=== PATIENT | male | born 1950 | race Caucasian/White ===

== ENCOUNTER → 2024-06-24 12:25 | Outpatient (REF) | payer MEDICARE, OTHER, SELFPAY | LOC: WOUND 12:25 | PROVIDERS: ATTENDING PHYSICIAN Surgery; FAMILY PHYSICIAN Family Medicine | DX: L97.322 Non-pressure chronic ulcer of left ankle with fat layer exposed (principal); L97.318 Non-pressure chronic ulcer of right ankle with other specified severity; I87.2 Venous insufficiency (chronic) (peripheral); I73.9 Peripheral vascular disease, unspecified; I50.9 Heart failure, unspecified; I50.32 Chronic diastolic (congestive) heart failure; J44.9 Chronic obstructive pulmonary disease, unspecified; G62.9 Polyneuropathy, unspecified | CPT/HCPCS: 11042; 73610; 99214 ==

== ENCOUNTER → 2024-06-30 10:59 | Outpatient (REF) | payer MEDICARE, OTHER, SELFPAY | LOC: WOUND 10:59 | PROVIDERS: ATTENDING PHYSICIAN Surgery | DX: L97.322 Non-pressure chronic ulcer of left ankle with fat layer exposed (principal); L97.312 Non-pressure chronic ulcer of right ankle with fat layer exposed; L97.212 Non-pressure chronic ulcer of right calf with fat layer exposed; I87.2 Venous insufficiency (chronic) (peripheral); I73.9 Peripheral vascular disease, unspecified; I50.9 Heart failure, unspecified; I50.32 Chronic diastolic (congestive) heart failure; J44.9 Chronic obstructive pulmonary disease, unspecified; G62.9 Polyneuropathy, unspecified | CPT/HCPCS: 11042 ==

== ENCOUNTER → 2024-07-05 07:27 | Outpatient (REF) | payer MEDICARE, OTHER, SELFPAY | LOC: RAD 07:27 | PROVIDERS: ATTENDING PHYSICIAN Surgery; FAMILY PHYSICIAN Family Medicine | DX: L97.322 Non-pressure chronic ulcer of left ankle with fat layer exposed (principal); I73.9 Peripheral vascular disease, unspecified; I87.2 Venous insufficiency (chronic) (peripheral) | CPT/HCPCS: 93922; 93970 ==

== ENCOUNTER → 2024-07-07 11:40 | Outpatient (REF) | payer MEDICARE, OTHER, SELFPAY | LOC: WOUND 11:40 | PROVIDERS: ATTENDING PHYSICIAN Surgery; FAMILY PHYSICIAN Family Medicine | DX: L97.322 Non-pressure chronic ulcer of left ankle with fat layer exposed (principal); L97.312 Non-pressure chronic ulcer of right ankle with fat layer exposed; L97.212 Non-pressure chronic ulcer of right calf with fat layer exposed; L97.221 Non-pressure chronic ulcer of left calf limited to breakdown of skin; I87.2 Venous insufficiency (chronic) (peripheral); I73.9 Peripheral vascular disease, unspecified; I50.9 Heart failure, unspecified; I50.32 Chronic diastolic (congestive) heart failure; J44.9 Chronic obstructive pulmonary disease, unspecified; G62.9 Polyneuropathy, unspecified | CPT/HCPCS: 11042; 97597 ==

== ENCOUNTER → 2024-07-15 11:11 | Outpatient (REF) | payer MEDICARE, OTHER, SELFPAY | LOC: WOUND 11:11 | PROVIDERS: ATTENDING PHYSICIAN Surgery; FAMILY PHYSICIAN Family Medicine | DX: L97.322 Non-pressure chronic ulcer of left ankle with fat layer exposed (principal); L97.312 Non-pressure chronic ulcer of right ankle with fat layer exposed; L97.212 Non-pressure chronic ulcer of right calf with fat layer exposed; L97.221 Non-pressure chronic ulcer of left calf limited to breakdown of skin; I87.2 Venous insufficiency (chronic) (peripheral); I73.9 Peripheral vascular disease, unspecified; I50.9 Heart failure, unspecified; I50.32 Chronic diastolic (congestive) heart failure; J44.9 Chronic obstructive pulmonary disease, unspecified; G62.9 Polyneuropathy, unspecified | CPT/HCPCS: 11042; 97597 ==

== ENCOUNTER → 2024-07-22 09:57 | Outpatient (REF) | payer MEDICARE, OTHER, SELFPAY | LOC: WOUND 09:57 | PROVIDERS: ATTENDING PHYSICIAN Surgery; FAMILY PHYSICIAN Family Medicine | DX: L97.322 Non-pressure chronic ulcer of left ankle with fat layer exposed (principal); S81.012A Laceration without foreign body, left knee, initial encounter; L97.312 Non-pressure chronic ulcer of right ankle with fat layer exposed; L97.212 Non-pressure chronic ulcer of right calf with fat layer exposed; L97.221 Non-pressure chronic ulcer of left calf limited to breakdown of skin; I87.2 Venous insufficiency (chronic) (peripheral); I73.9 Peripheral vascular disease, unspecified; I50.9 Heart failure, unspecified; J44.9 Chronic obstructive pulmonary disease, unspecified; I50.32 Chronic diastolic (congestive) heart failure; G62.9 Polyneuropathy, unspecified; X58.XXXA Exposure to other specified factors, initial encounter | CPT/HCPCS: 99213 ==

== ENCOUNTER → 2024-08-04 13:47 | Outpatient (REF) | payer MEDICARE, OTHER, SELFPAY | LOC: WOUND 13:47 | PROVIDERS: ATTENDING PHYSICIAN Surgery; FAMILY PHYSICIAN Family Medicine | DX: L97.322 Non-pressure chronic ulcer of left ankle with fat layer exposed (principal); S81.012A Laceration without foreign body, left knee, initial encounter; L97.312 Non-pressure chronic ulcer of right ankle with fat layer exposed; L97.212 Non-pressure chronic ulcer of right calf with fat layer exposed; L97.221 Non-pressure chronic ulcer of left calf limited to breakdown of skin; I87.2 Venous insufficiency (chronic) (peripheral); I73.9 Peripheral vascular disease, unspecified; I50.9 Heart failure, unspecified; I50.32 Chronic diastolic (congestive) heart failure; J44.9 Chronic obstructive pulmonary disease, unspecified; G62.9 Polyneuropathy, unspecified; W19.XXXA Unspecified fall, initial encounter | CPT/HCPCS: 11042 ==

== ENCOUNTER 2024-08-18 18:53 | Inpatient (IN) | payer MEDICARE, OTHER, SELFPAY ==
[2024-08-18 13:57] VITALS: BP 94/72
[2024-08-18 14:16] LABS: % Basophils 1.1 % (0-2); % Eosinophils 2.2 % (0-6); % Immature Granulocytes 0.3 % (0-0.5); % Lymphocytes 24.1 % (20.5-51.1); % Monocytes 9.9 % (1.7-9.3); % Neutrophils 62.4 % (42.2-75.2); Absolute Basophils 0.1 10^3/uL (0-0.2); Absolute Eosinophils 0.1 10^3/uL (0-0.7); Absolute Lymphocytes 1.5 10^3/uL (1.2-3.4); Absolute Monocytes 0.6 10^3/uL (0.1-0.6); Hematocrit 37.4 % (39.0-52.0); Mean Corp Hgb Conc. 32.1 g/dL (33.0-37.0); Mean Corpuscular Hgb 29.3 pg (27.0-31.0); Mean Corpuscular Volume 91.4 fL (80.0-94.0); Mean Platelet Volume 8.4 fL (7.4-10.4); Nucleated Red Blood Cells % 0 % (-); Platelet Count 134 10^3/uL (130-400); Red Blood Cell Count 4.09 10^6/uL (4.70-6.10); Red Cell Dist. Width 16.2 % (11.5-14.5); White Blood Cell Count 6.4 10^3/uL (4.8-10.8)
[2024-08-18 14:46] LABS: Blood Urea Nitrogen 11 mg/dl (9-20); Calcium 9.2 mg/dl (8.4-10.2); Carbon Dioxide 28 mmol/L (22-30); Chloride 100 mmol/L (98-107); Glucose 109 mg/dl (70-99); Sodium 139 mmol/L (135-145); eGFR > 60.00
[2024-08-18 17:59] VITALS: BMI 35.1
[2024-08-18 18:00] VITALS: BP 145/67
--- NOTE | 2024-08-18 18:17 | ED.GENMED ---
History of Present Illness
General
Chief Complaint: Skin Problem
Source: patient, family and physician
Time Seen by Provider: 08/18/24 17:58
History of Present Illness
History of Present Illness:
74-year-old male with past medical history of COPD, hypertension, hyperlipidemia, CHF, peripheral neuropathy presenting to the emergency department from the [facility] for evaluation and treatment of right lower extremity pain, erythema,
edema and increased warmth which has been progressively worsening over the last 2 weeks after patient fell out of a computer chair onto both knees. He had a small blister on his knee which is since subsided but still has a small opening. The
erythema has started to track down into the right lower extremity towards the ankle. No fevers or chills. No chest pain or shortness of breath. Patient states that he has a previous wound to his left lower extremity for which he completed a
course of antibiotics about 1 month ago. No other concerns presently.
Past History
Past History
ED Past Medical History: CHF, COPD, HTN and Hypercholesterolemia
ED Past Surgical History: Orthopedic (Kyphoplasty) and Urological
Social History
Tobacco: Former smoker
Alcohol: None
Drug: None
Personal:
Living: with family
Review of Systems
Review of Systems
All Other Systems: ROS reviewed and negative except as documented in HPI and ROS
Phy Exam
Physical Exam
Physical Exam:
GENERAL: Alert , in no apparent distress
EYE: clear conjunctiva
NECK: Supple
ENT: mmm.
CARDIAC: Regular rate and rhythm .
LUNGS: Clear breath sounds bilaterally, no acute respiratory distress, no wheezes/rales/rhonchi
NEUROLOGICAL: Alert and oriented
SKIN: Warm and dry, small break in skin measuring ~1cm circumferentially to the anterior patella, surrounding the entirety of the anterior knee and patella is significant varus, warmth and pain with palpation. Very restricted range of motion
secondary to the pain and swelling.
MUSCULOSKELETAL: mild lower extremity edema on the right compared to the left, chronic venous stasis dermatitis noted to both lower extremities.
PSYCH: Normal and appropriate interaction.
Scores
Heart Failure Risk
Heart Failure Risk Score: Not Applicable
Heart Score for Chest Pain Patients
STEMI patient?: Not applicable
Withdrawal Assessment of Alcohol
Withdrawal Assessment Completed?: Not applicable
Course
Orders/Labs/Results
Orders:
Orders
08/18/24 14:06
Basic Metabolic Panel Urgent
C-Reactive Protein Urgent
Comment: ADD ON
Complete Blood Count/With Diff Urgent
Erythrocyte Sed Rate Urgent
Comment: ADD ON
08/18/24 18:08
Add On- LAB Urgent
Tests Added?: ESR/CRP
08/18/24 18:23
CR Knee- Right 4 Or More View* Urgent
Comment:
Reason For Exam: pain, edema
08/18/24 18:42
Blood Culture Q30M
ASHELY Source: Blood/Venous
Specimen Description:
08/18/24 18:43
Admit/Transfer Patient As Directed
Co-Sign Provider:
Level of Care: Inpatient admission
Assign to:: Medical/Surgical
Physician / Group: brad
Diagnosis: right knee cellulitis
Reason for Hospitalization: right knee cellulitis
Expected length of stay greater than two midnights?: Yes
ELOS- Estimated Length of Stay in days: 3
I certify the patient meets the requirements for IP care: Yes
Blood Culture Q30M
ASHELY Source: Blood/Venous
Specimen Description:
PRN Pain Medication Management As Directed
May give lesser potent ordered pain med per pt: Yes
preference::
Protocol:: Medication orders for pain may be administered in a
manner that supports deferring to patient preference
when the pt is:
- Requesting an ordered lesser potent pain medication.
Least to most potent pain medications are defined
as: acetaminophen < NSAID < tramadol < opioids
(morphine, oxycodone, hydromorphone).
- Requesting a lesser dose of the same medication IF
ORDERED.
- Requesting a less intrusive route of administration
if both routes are prescribed by the provider (PO <
IV).
08/18/24 18:44
Code Status As Directed
Resuscitation Status: Full Code
08/18/24 18:45
Vancomycin [Vancocin] 2,000 mg 0.9% Sodium Chloride 500 ml [Nss] 500 ml IV NOW
Abnormal Lab Results
08/18/24
14:06
RBC 4.09 L 10^6/uL
(4.70-6.10)
Hgb 12.0 L g/dL
(13.0-18.0)
Hct 37.4 L %
(39.0-52.0)
MCHC 32.1 L g/dL
(33.0-37.0)
RDW 16.2 H %
(11.5-14.5)
Monocytes % 9.9 H %
(1.7-9.3)
Glucose 109 H mg/dl
(70-99)
C-Reactive Protein 18.60 H mg/L
(0.0-10.00)
08/18/24 14:06
08/18/24 14:06
Vital Signs
Initial and Last Documented VS:
Initial Vital Signs
Temp Pulse Resp BP Pulse Ox
98.7 F 63 18 94/72 95
08/18/24 13:57 08/18/24 13:57 08/18/24 13:57 08/18/24 13:57 08/18/24 13:57
Last Documented Vital Signs
Temp Pulse Resp BP Pulse Ox
98.1 F 73 20 145/67 95
08/18/24 18:00 08/18/24 18:00 08/18/24 18:00 08/18/24 18:00 08/18/24 18:00
MDM/Problems Addressed
Differential Diagnosis Includes:
Prepatellar bursitis/cellulitis, septic joint, Lyme, less concern for fracture
MDM/Problems Addressed:
74-year-old male presenting to the emergency department for evaluation at the request of the [facility] with concern for cellulitis of the right lower extremity/septic bursitis/septic joint. Patient sustained a fall 2 weeks ago, since that
time has had worsening pain, erythema, edema and warmth to the extremity. Recently completed antibiotics for a wound to the left lower extremity. Given patient's chronic medical conditions combined with the significantly diffuse erythema and pain
we will plan for admission for IV antibiotics, orthopedics consult, possibly ID consult and close monitoring of infection. Labs initiated on arrival. I added on blood cultures and an x-ray. Vancomycin started.
*Radiology
Radiology exam reviewed: preliminary read by ED provider (No fracture, degenerative changes seen)
*Pulse Oximetry
Patient hypoxic: no
*Critical Care Note
Total Time (30-74mins, 75-104mins- exclusive of procedures): Not Applicable
Patient Management
Discussion with other providers: Hospitalist and Jtac
Escalation/DeEscalation of care consider admission/obs:
Hospitalist team notified and accepts for continued evaluation and treatment. Orthopedics to consult.
ED Attending Note
-
Portions of this chart may have been created with voice recognition software.� Occasional wrong word or��sound alike� substitutions may have occurred due to the inherent limitations of voice recognition software.
Discharge Plan
Departure
Patient Disposition: Admit
Date of Disposition: 08/18/24
Time of Disposition: 18:30
Presentation/result/management discussed w/ accepting MD/DO: Hospitalist
Discharge Problem:
Cellulitis of right lower extremity
Interventions
Interventions:
*Risk Screen - Suicide Last Done: 08/18/24 13:57
*General Assessment Last Done: 08/18/24 13:57
*Neglect/Abuse Screening Last Done: 08/18/24 18:11
*ED- Fall Risk Assessment Last Done: 08/18/24 18:11
*ED COVID-19 Vaccine History Last Done: 08/18/24 13:57
*Nursing Disposition Last Done: 08/18/24 20:35
ED-Skin Assessment Last Done: 08/18/24 18:11
Discharge Date and Time
Discharge Date/Time: 08/18/24 20:51
--- NOTE | 2024-08-18 18:24 | HPS.HSE ---
Family Physician
-
Family Physician: INTERVIEWE UNKNOWN - PT NOT
Chief Complaint
-
right knee swelling, cellultisi
History of Present Illness
74-year-old male with past medical history of COPD, hypertension, hyperlipidemia, CHF, peripheral neuropathy, venous ulcer on the left ankle presenting to the emergency department from the [facility] for evaluation and treatment of right
lower extremity pain, erythema, edema and increased warmth which has been progressively worsening over the last 2 weeks after patient fell out of a computer chair onto both knees. He had a small blister on his knee which is since subsided but still
has a small opening. The erythema has started to track down into the right lower extremity towards the ankle for past three days. No fevers or chills. No chest pain or shortness of breath.denied PLASCENCIA, dizzy or syncope.denied chest pain, sob.
denied abdominal pain,n,v,d. denied dysuria or hematuria.
Patient received a dose of vancomycin in ER. Orthopedic consulted
Medical History
Past Medical History
Past Medical History: Reports Other
Additional Past Medical History:
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
Past Surgical History: Reports Other
Additional Past Surgical History:
[place] teeth removed, kyphoplasty, bladder surgery, cataract surgery
Social History
Tobacco: Former Smoker
Alcohol: Daily (3 glasses of wine)
Drug: None
Living: With Family
Family History
Family History: Not pertinent
Allergies / Home Medications
Allergies reflects when Allergies were last updated in [facility].
Home Medications with original date entered in [employer]
Allergy/Medication List:
Allergies
Allergy/AdvReac Type Severity Reaction Status Date / Time
No Known Allergies Allergy Verified 08/18/24 14:02
Home Medications
Ergocalciferol (Vitamin D2) [Vitamin D2] 1,250 mcg PO Daily 01/12/21
duloxetine 30 mg capsule,delayed release 30 mg PO Daily 01/12/21
esomeprazole magnesium 40 mg capsule,delayed release (Nexium) 40 mg PO Daily 01/12/21
finasteride 5 mg tablet 5 mg PO Daily 01/12/21
gabapentin 400 mg capsule 400 mg PO HS 01/12/21
loratadine 10 mg tablet 10 mg PO Daily 01/12/21
lovastatin 40 mg tablet 40 mg PO Daily 01/12/21
roflumilast 500 mcg tablet (Daliresp) 500 mcg PO Daily 01/12/21
spironolactone 25 mg tablet 25 mg PO Daily 01/12/21
zaleplon 10 mg capsule 10 mg PO Daily 01/12/21
amlodipine 10 mg tablet 5 mg (1/2 x 10 mg) PO DAILY 01/15/21
cefuroxime axetil 500 mg tablet 500 mg PO BID 7 days #14 tabs 01/15/21
tamsulosin 0.4 mg capsule 0.4 mg PO DAILY 30 days #30 caps 01/15/21
Review of Systems
-
Constitutional: Reports No Symptoms
EENT: Reports No Symptoms
Respiratory: Reports No Symptoms
Cardiac: Reports No Symptoms
Abdomen/GI: Reports No Symptoms
: Reports No Symptoms
Musculoskeletal: Reports No Symptoms
Skin: Reports Other (Right knee swelling, redness streaking down, left ankle ulcer)
Neurological: Reports No Symptoms
Endocrine: Reports No Symptoms
Hematologic/Lymphatic: Reports No Symptoms
Psych: Reports No Symptoms
Physical Exam
Vital Signs
Vital Signs
Temp Pulse Resp BP Pulse Ox
98.1 F 73 20 145/67 95
08/18/24 18:00 08/18/24 18:00 08/18/24 18:00 08/18/24 18:00 08/18/24 18:00
Physical Exam
General: Well Developed, Well Nourished and No Apparent Distress
HEENT: NormoCephalic, Moist mucous membranes and Atraumatic
Respiratory: Clear
Cardiac: S1/S2 and Regular Rhythm; No Murmur or Rub
GI: Soft, Non Tender, Non Distended and Normal Bowel Sounds; No Organomegaly
Rectal: Deferred by Provider
Musculoskeletal: No Clubbing, No Cyanosis and No Edema
Skin: Other (small break in skin measuring ~1cm circumferentially to the anterior patella, surrounding the entirety of the anterior knee and patella is significant varus, warmth and pain with palpation. Right ankle venous/)
Neuro: AO x 3 and Nonfocal/grossly intact
Psych: Calm
Laboratory Results
-
08/18/24 14:06
08/18/24 14:06
Laboratory Results
Total Bilirubin Cancelled 08/18/24 14:06
AST Cancelled 08/18/24 14:06
ALT Cancelled 08/18/24 14:06
Alkaline Phosphatase Cancelled 08/18/24 14:06
Data Reviewed
-
Lab Data: Labs Reviewed by me
Impression/Plan
-
# Prepatellar bursitis/cellulitis
#left ankle venous ulcer
- Orthopedic consulted
- IV Vanco,cefazolin continued
-Tylenol as needed for pain or fever
- Wound care consulted
- X-ray of the right knee, CRP, blood cultures ordered in ER
# Anemia of chronic disease
- Hemoglobin stable at 12.0
- No active bleeding
- Ferritin continue
#Essential HTN
-Norvasc, Coreg continue with hold parameters
# History of COPD
- Patient noted acute exacerbation
- Daliresp continued
# Anxiety
- Duloxetine continued
# Peripheral neuropathy
- Gabapentin continued
#CHF HX
- cont Aldactone, Jardiance,lasix
- Strict VANESA, daily weights
#HLD maintain on pravastatin
# History of seizure
- Keppra continue
# GERD
- PPI continued
# Insomnia
-trazodone continue for sleep
# DVT prophylaxis
- Lovenox subcu
#CODE STATUS
- Full code
[2024-08-18 18:32] LABS: Erythrocyte Sed Rate 8 mm/hour (0-20)
--- NOTE | 2024-08-18 19:10 | W.PN.UPDATE ---
Update Note
Progress Note Update
This is an addendum to H&P written by CRYSTAL ATTACHER Malaika Holguin
I saw and examined the patient.
The CRYSTAL ATTACHER's note was reviewed and I agree with the note.
Comment:
Mr. Vinh Green is a 74 yo man with hx COPD, essential HTN, HLD, CHF, peripheral neuropathy presents to the ER for progressive RLE swelling, pain and redness. He feel 2 weeks ago onto both knees, had small blister on right knee then noticed
worsening erythema.
Triage VS: T 98.7, P 63, RR 18, BP 94/72 --> 145/67, SpO2 95%
On exam patient is in no distress; right knee with small wound anterior with surrounding redness and swelling; warm to touch
LABS: WBC 6.4, Hg 12, PLT 134, Na 139, Cl 100, CO2 28, BUN 11, Cr 0.9, Glucose 109
CRP 18.6
Prepatellar Bursitis/Cellulitis
-admit to medicine
-Ortho consulted
-s/p IV Vanc in the ER, add on IV Cefazolin for MSSA/Strep coverage
Essential HTN
-SPECIAL EDUCATION DIRECTOR Coreg, Amlodipine
CHF - SPECIAL EDUCATION DIRECTOR Lasix, Spironolactone
Neuropathy - SPECIAL EDUCATION DIRECTOR Gabapentin
Seizure disorder - SPECIAL EDUCATION DIRECTOR Keppra
HLD - SPECIAL EDUCATION DIRECTOR Statin
remainder of plan per CRYSTAL ATTACHER note
[2024-08-18] MEDS: VANCOCIN 540 MG IV (19:25)
[2024-08-18 20:14] LABS: ALT (SGPT) 21 U/L (0-50); AST (SGOT) 24 U/L (17-59); Albumin 3.1 g/dl (3.5-5.0); Alkaline Phosphatase 83 U/L (38-126); Direct Bilirubin 0.2 mg/dl (0.0-0.4); Magnesium 1.6 mg/dl (1.6-2.3); Potassium 3.4 mmol/L (3.5-5.1); Total Bilirubin 0.8 mg/dl (0.2-1.3); Total Protein 5.7 g/dl (6.3-8.2)
[2024-08-18] MEDS: NEURONTIN 400 MG PO (21:24)
[2024-08-18] MEDS: KEPPRA 500 MG PO (21:25)
[2024-08-18] MEDS: TYLENOL 650 MG PO (21:25)
--- NOTE | 2024-08-18 21:25 | PHA.VAN.IN ---
Assessment
- Assessment
Renal Function: Appears similar to baseline (01/15/21 BASELINE SCR: 0.8)
Concomitant Antimicrobials: ANCEF
- Previous Dosing Experience
Previous Regimen: NONE
AUC Dosing Plan
- Dosing Variables
Dosing Weight (kg): 112.6
Dosing CrCl (ml/min): 90
Vd coefficient (L/kg): 0.6
- Empiric Dosing
Initial / Loading Dose: 2GM
Maintenance Regimen: 1250MG IV Q12H
Estimated AUC (mcg*h/mL): 496
Estimated Peak (mcg*h/mL): 30.2
Estimated Trough (mcg/ml): 13.2
Estimated Half Life (H): 8.8
Pharmacokinetics Vancomycin I
- -
Patient Age: 74
Patient Sex: Male
Vancomycin Day #: 1
Indication: Skin And Soft Tissue (PRE-PATTELLAR BURSITIS/CELLULITIS)
Requesting Provider: NASH
Height / Weight:
Height 5 ft 10.5 in
Actual Weight 112.6 kg
- Vital Signs / Lab Results
Temp Pulse Resp BP Pulse Ox
98.1 F 73 20 145/67 95
08/18/24 18:00 08/18/24 18:00 08/18/24 18:00 08/18/24 18:00 08/18/24 18:00
Lab Results - Hematology
08/18/24
14:06
WBC 6.4
Lab Results - Chemistry
08/18/24 08/18/24
14:06 19:42
BUN 11
Creatinine 0.9
Albumin Cancelled 3.1 L
[2024-08-18 21:39] VITALS: BMI 35.1
[2024-08-18 22:03] VITALS: BP 182/68
[2024-08-18] MEDS: DESYREL 50 MG PO (22:09)
[2024-08-18] MEDS: FARXIGA 10 MG PO (22:09)
[2024-08-18] MEDS: COREG 6.25 MG PO (22:09)
[2024-08-18] MEDS: ANCEF 10 IV (23:04)
[2024-08-19] MEDS: ANCEF 10 IV ×3 (05:36→21:32)
[2024-08-19] MEDS: VANCOCIN 275 MG IV (05:36)
[2024-08-19 06:00] VITALS: BMI 34.8
[2024-08-19 06:23] LABS: Blood Urea Nitrogen 13 mg/dl (9-20); Calcium 9.3 mg/dl (8.4-10.2); Carbon Dioxide 30 mmol/L (22-30); Chloride 104 mmol/L (98-107); Estimated Creatinine Clearance 81 ml/min; Glucose 109 mg/dl (70-99); Potassium 4.2 mmol/L (3.5-5.1); Sodium 142 mmol/L (135-145); eGFR > 60.00
--- NOTE | 2024-08-19 06:31 | PTCARENOTE ---
Received report from Kasia PORTILLO @ [id number]. Pt was observed to have have no s/s of distress assessed at that time. Continued to monitor w/o incident.
[2024-08-19 07:11] LABS: Hepatitis C Antibody Negative (Negative)
[2024-08-19 08:05] VITALS: BP 186/73
[2024-08-19] MEDS: CYMBALTA DELAYED RELEASE 60 MG PO (08:26)
[2024-08-19] MEDS: PROTONIX 40 MG PO (08:26)
[2024-08-19] MEDS: NEURONTIN 400 MG PO ×3 (08:27→21:33)
[2024-08-19] MEDS: DALIRESP 500 MCG PO (08:27)
[2024-08-19] MEDS: COREG 6.25 MG PO ×2 (08:27→21:33)
[2024-08-19] MEDS: KEPPRA 500 MG PO ×2 (08:27→21:33)
[2024-08-19] MEDS: ALDACTONE 25 MG PO (08:28)
[2024-08-19] MEDS: LASIX 20 MG PO (08:28)
[2024-08-19] MEDS: NORVASC 5 MG PO (08:28)
--- NOTE | 2024-08-19 08:38 | W.PN.UPDATE ---
Update Note
Progress Note Update
For H&P consult to follow
74-year-old male consult for right possible septic knee bursitis.
No sign of effusion on exam. Fluid collection of the prepatellar bursa. Limited nonvascular ultrasound shows hypoechoic fluid most consistent with hematoma. Recommended for aspiration to ensure no purulent fluid. Under image guidance needle was
well localized in the fluid collection which was hypoechoic with stranding consistent with hematoma with no significant yield other than small amounts of coagulated blood
No operative indication. Patient may have diet and will clinically monitor continue treatment for superficial cellulitis and likely traumatic hemorrhagic prepatellar bursitisFor H&P consult to follow
74-year-old male consult for right possible septic knee bursitis.
No sign of effusion on exam. Fluid collection of the prepatellar bursa. Limited nonvascular ultrasound shows hypoechoic fluid most consistent with hematoma. Recommended for aspiration to ensure no purulent fluid. Under image guidance needle was
well localized in the fluid collection which was hypoechoic with stranding consistent with hematoma with no significant yield other than small amounts of coagulated blood
No operative indication. Patient may have diet and will clinically monitor continue treatment for superficial cellulitis and likely traumatic hemorrhagic prepatellar bursitis
--- NOTE | 2024-08-19 09:24 | W.PN.HOSP.TC ---
Today's Communication/Plan
-
Antibiotics. Pain control
Assessment / Plan
Assessment / Plan
Physical exam:
General: Acutely ill
HEENT: Normocephalic, Atraumatic and Moist Mucous Membranes
Respiratory: Clear to Auscultation; Decreased breath sounds bilaterally; Negative Wheezes, Rales or Rhonchi
Cardiac: Regular Rhythm and S1/S2
GI: Soft, Nontender and Nondistended
Musculoskeletal: Right knee swelling and below erythema in right lower extremity. No Clubbing, No Cyanosis
Neuro: Awake, Alert and Oriented, no neurological deficit
Psych: Calm
A/P:
Right lower extremity cellulitis:
Continue IV cefazolin
Stop IV vancomycin
Blood cultures no growth till date
Discussed with son-in-law at bedside today
Prepatellar bursitis/hematoma:
Status post aspiration
Follow-up cultures
Appreciate Ortho consult
Continue IV cefazolin
Stop IV vancomycin
Pain control
PT eval
Hypertension:
Usual meds
Hyperlipidemia:
Continue statin
COPD:
No bronchospasm
On Roflumilast
Chronic HFpEF:
Euvolemic
Continue GDMT
Seizure:
Continue AED
DVT prophylaxis:
Lovenox SQ
CODE STATUS:
Full code
Anticipated Discharge: Within 24 hours
Subjective/Interval History
-
Date of Service: August 19, 2024
Patient with discomfort in right knee area. No chest pain or shortness of breath. Afebrile
Objective Data
-
Labs:
Laboratory Results
08/19/24
05:28
Sodium 142
Potassium 4.2
Chloride 104
Carbon Dioxide 30
BUN 13
Creatinine 1.0
Glucose 109 H
Calcium 9.3
Vital Signs:
Vital Signs
Temp Pulse Resp BP Pulse Ox
97.3 F 61 14 186/73 93
08/19/24 08:05 08/19/24 08:27 08/19/24 08:05 08/19/24 08:27 08/19/24 08:05
--- NOTE | 2024-08-19 10:08 | WOUNDNOTE ---
LEFT ANKLE VENOUS ULCER
--- NOTE | 2024-08-19 10:14 | PHA.VAN.FU ---
Vancomycin Assessment / Plan
- Assessment
Renal Function: Stable
In the past 24 hrs, patient has been: Afebrile
Concomitant Antimicrobials: cefazolin
- Dosing Plan
Continue: vancomycin 1250 mg q12h - 1st dose 08/19 0600, after 2gm LD 08/18
- Monitoring Plan
No level(s) ordered at this time: consider levels when pt reaches steady state
- Follow Up
Pharmacy will continue to follow.
Vancomycin Follow UP
- -
Patient Age: 74
Patient Sex: Male
Vancomycin Day #: 2
Indication: Skin And Soft Tissue (PRE-PATTELLAR BURSITIS/CELLULITIS)
Requesting Provider: NASH
Height / Weight:
Height 5 ft 10.5 in
Actual Weight 111.357 kg
Pertinent Past Medical History: COPD
- Vital Signs / Lab Results
Temp Pulse Resp BP Pulse Ox
97.3 F 61 14 186/73 93
08/19/24 08:05 08/19/24 08:27 08/19/24 08:05 08/19/24 08:27 08/19/24 08:05
Lab Results - Hematology
08/18/24
14:06
WBC 6.4
Lab Results - Chemistry
08/18/24 08/18/24 08/19/24
14:06 19:42 05:28
BUN 11 13
Creatinine 0.9 1.0
Estimated Creat Clear 81
Albumin Cancelled 3.1 L
--- NOTE | 2024-08-19 10:32 | WOUNDNOTE ---
[facility] RN note: Patient admitted with right knee bursitis vs cellulitis
See H&P for complete history.
PMH: COPD, HTN, CHF
Wound Location and type/assessment: Patient admitted with chronic left ankle venous ulcer. Patient has been following at [facility] for this ulcer. See worklist for details. Patient prefers to wear own compression socks. Heels and sacrum intact. Patient
turns in bed, is continent of urine and ambulates with walker.
Appetite: Good
Pressure redistribution devices in place: Versa Care Accumax
Plan: Continue with Rebel and compression daily. Follow up at [facility]. Will confirm orders with hospitalist and update nurse. Updated care plan and will follow as needed.
Note to case management of equipment requested for discharge:
Recommend follow up at wound care center upon discharge.
[2024-08-19 11:34] VITALS: PULSE 62; O2SAT 94
[2024-08-19] MEDS: SANTYL OINTMENT 1 APPLIC TOPICAL (12:30)
[2024-08-19 15:58] VITALS: BP 120/70
[2024-08-19] MEDS: LOVENOX 40 MG SC (17:00)
[2024-08-19] MEDS: PRAVACHOL 40 MG PO (17:00)
--- NOTE | 2024-08-19 17:21 | CM ---
Alert awake oriented patient who lives with his Migdalia in a 1 story home with 0 step to enter. He is assisted in all activities of daily living.He was offered VN he declined need.
[place] [facility] hx / No SNF history
Pharmacy [facility]
PCP DR Lexii Fonseca
PLAN Home Declined VN
[2024-08-19] MEDS: FARXIGA 10 MG PO (21:33)
[2024-08-19] MEDS: DESYREL 50 MG PO (21:33)
[2024-08-19] MEDS: TYLENOL 650 MG PO (21:41)
[2024-08-19 22:48] LABS: Glucose - Point of Care 129 mg/dl (70-99)
[2024-08-20 01:27] VITALS: BP 128/69
[2024-08-20] MEDS: ANCEF 10 IV (05:43)
[2024-08-20 08:13] LABS: Glucose - Point of Care 118 mg/dl (70-99)
[2024-08-20 08:27] VITALS: BP 125/55
[2024-08-20] MEDS: CYMBALTA DELAYED RELEASE 60 MG PO (08:49)
[2024-08-20] MEDS: PROTONIX 40 MG PO (08:50)
[2024-08-20] MEDS: NEURONTIN 400 MG PO (08:50)
[2024-08-20] MEDS: NORVASC 5 MG PO (08:50)
[2024-08-20] MEDS: COREG 6.25 MG PO (08:50)
[2024-08-20] MEDS: ALDACTONE 25 MG PO (08:50)
[2024-08-20] MEDS: DALIRESP 500 MCG PO (08:50)
[2024-08-20] MEDS: KEPPRA 500 MG PO (08:50)
[2024-08-20] MEDS: LASIX 20 MG PO (08:50)
[2024-08-20] MEDS: SANTYL OINTMENT 1 APPLIC TOPICAL (08:51)
--- NOTE | 2024-08-20 09:26 | W.PN.HOSP.TC ---
Today's Communication/Plan
-
Discharge planning today
Assessment / Plan
Assessment / Plan
Physical exam:
General: No acute distress
HEENT: Normocephalic, Atraumatic and Moist Mucous Membranes
Respiratory: Clear to Auscultation; Decreased breath sounds bilaterally; Negative Wheezes, Rales or Rhonchi
Cardiac: Regular Rhythm and S1/S2
GI: Soft, Nontender and Nondistended
Musculoskeletal: Right knee swelling and below erythema in right lower extremity decreasing substantially. No Clubbing, No Cyanosis
Neuro: Awake, Alert and Oriented, no neurological deficit
Psych: Calm
A/P:
Right lower extremity cellulitis:
Switch IV cefazolin to oral Keflex
Off IV vancomycin
Blood cultures no growth till date
Discussed with son-in-law at bedside yesterday
Participated with PT
Pain control (patient prefers tramadol) and bowel regimen
Medically ready for discharge
Prepatellar bursitis/hematoma:
Status post aspiration
Follow-up cultures
Appreciate Ortho consult-can follow-up as outpatient
Continue IV cefazolin
Stop IV vancomycin
Pain control
PT eval
Hypertension:
Usual meds
Hyperlipidemia:
Continue statin
COPD:
No bronchospasm
On Roflumilast
Chronic HFpEF:
Euvolemic
Continue GDMT
Seizure:
Continue AED
DVT prophylaxis:
Lovenox SQ
CODE STATUS:
Full code
Anticipated Discharge: Today
Subjective/Interval History
-
Date of Service: August 20, 2024
Patient feels better overall. Pain is decreasing. Afebrile
Objective Data
-
Labs:
Laboratory Results
08/20/24
06:00
WBC Pending
Hgb Pending
Hct Pending
Plt Count Pending
Sodium Pending
Potassium Pending
Chloride Pending
Carbon Dioxide Pending
BUN Pending
Creatinine Pending
Glucose Pending
Calcium Pending
Vital Signs:
Vital Signs
Temp Pulse Resp BP Pulse Ox
97.8 F 61 22 125/55 94
08/20/24 08:27 08/20/24 08:50 08/20/24 08:27 08/20/24 08:50 08/20/24 08:27
I&O
08/19/24 08/20/24 08/21/24
06:59 06:59 06:59
Intake Total 960 / 960
Balance 960 / 960
[2024-08-20 10:55] LABS: % Basophils 1.2 % (0-2); % Eosinophils 3.4 % (0-6); % Immature Granulocytes 0.6 % (0-0.5); % Lymphocytes 21.4 % (20.5-51.1); % Monocytes 9.7 % (1.7-9.3); % Neutrophils 63.7 % (42.2-75.2); Absolute Basophils 0.1 10^3/uL (0-0.2); Absolute Eosinophils 0.3 10^3/uL (0-0.7); Absolute Lymphocytes 1.6 10^3/uL (1.2-3.4); Absolute Monocytes 0.7 10^3/uL (0.1-0.6); Absolute Neutrophils 4.6 10^3/uL (1.4-6.5); Hematocrit 38.6 % (39.0-52.0); Hemoglobin 12.3 g/dL (13.0-18.0); Mean Corp Hgb Conc. 31.9 g/dL (33.0-37.0); Mean Corpuscular Hgb 29.2 pg (27.0-31.0); Mean Corpuscular Volume 91.7 fL (80.0-94.0); Mean Platelet Volume 8.4 fL (7.4-10.4); Nucleated Red Blood Cells % 0 % (-); Platelet Count 138 10^3/uL (130-400); Red Blood Cell Count 4.21 10^6/uL (4.70-6.10); Red Cell Dist. Width 16.4 % (11.5-14.5); White Blood Cell Count 7.3 10^3/uL (4.8-10.8)
[2024-08-20 11:14] LABS: Blood Urea Nitrogen 18 mg/dl (9-20); Calcium 9.7 mg/dl (8.4-10.2); Carbon Dioxide 27 mmol/L (22-30); Chloride 101 mmol/L (98-107); Estimated Creatinine Clearance 80 ml/min; Glucose 125 mg/dl (70-99); Potassium 4.1 mmol/L (3.5-5.1); Sodium 141 mmol/L (135-145); eGFR > 60.00
--- NOTE | 2024-08-20 12:13 | W.DCSUMMARY ---
Discharge Summary
Discharge Data
Date of Admission: 08/18/24
Date of Discharge: 08/20/24
-
Pending Results: No
Hospital Course
Patient is 74 years old male history of COPD, PVD, CHF, hypertension, hyperlipidemia, seizures, came into the hospital with right lower extremity erythema and warmth for a few days and also swelling on the right knee after sustaining a fall from a
chair a couple weeks prior. Patient was started on IV antibiotics and orthopedic consulted. Orthopedic evaluated patient for concerns of septic bursitis or septic arthritis. He had aspiration of the bursa and it was diagnostic for hemorrhagic
bursitis and no evidence of purulent material. There is a component of cellulitis that he has been treated with antibiotics and responded very well. Patient participated with PT and OT. Patient otherwise has been hemodynamically stable and
afebrile and eager to go home today. His cultures have remained negative. He will finish a course of oral antibiotic as outpatient. He will be discharged in relatively stable condition today.
Discharge duration: 35 minutes
Discharge Plan
-
Patient Disposition: Home (Routine Discharge)
Discharge Diagnosis/Procedures: Right lower extremity cellulitis. Prepatellar hematoma and bursitis. Chronic diastolic congestive heart failure.
Diet: Low Cholesterol, Low Sodium and Restrict fluids to 64 oz
Activity: As tolerated
Blood Work: Please PCP to order CBC, BMP within 1 week
Specialty Instructions: Weigh Daily- Call MD for wt gain/loss 3 lbs overnight/5 lbs in 1 week
Activity Restrictions/Additional Instructions:
Wound Care Instructions Left Ankle Wound- Clean with normal saline or soap and water. Apply Santyl and cover with adaptic and dry dressing. Change daily.
Follow up at wound care center call for an appointment.
Referrals:
Primary care, provider [Other] - in less than 1 week
Lang Evans MD [Active] - in one to two weeks
Prescriptions:
New
cephalexin 500 mg Capsule
500 mg PO QID 5 Days Qty: 20 0RF
tramadol 50 mg tablet
50 mg PO Q8H PRN (Reason: moderate to severe pain) Qty: 14 0RF
polyethylene glycol 3350 [Miralax] 17 gram/dose powder
4 g PO DAILY Qty: 119 0RF
Continued
spironolactone 25 MG tablet
25 mg PO Daily
zaleplon 10 MG capsule
10 mg PO HSPRN PRN (Reason: sleep)
roflumilast [Daliresp] 500 MCG tablet
500 mcg PO Daily
gabapentin 400 MG capsule
400 mg PO TID
carvedilol [Coreg] 6.25 mg Tablet
6.25 mg PO BID
trazodone 50 mg Tablet
50 mg PO HS
pravastatin 40 mg Tablet
40 mg PO QPM
levetiracetam [Keppra] 500 mg Tablet
500 mg PO BID
zinc sulfate 25 mg zinc (110 mg) Tablet
15 mg PO DAILY
cyanocobalamin (vitamin B-12) 1,000 mcg Tablet
1,000 mcg PO MOWEFR
amlodipine [Norvasc] 5 mg Tablet
5 mg PO DAILY
pantoprazole [Protonix] 40 mg Tablet,Delayed Release (Dr/Ec)
40 mg PO DAILY
vitamin B complex Tablet
1 tab PO DAILY
furosemide [Lasix] 20 mg Tablet
20 mg PO DAILY
duloxetine [Cymbalta] 60 mg Capsule,Delayed Release(Dr/Ec)
60 mg PO DAILY
cholecalciferol (vitamin D3) [Vitamin D3] 125 mcg (5,000 unit) Tablet
125 mcg PO DAILY
Vitamin C 500 mg/15 mL Liquid
15 ml PO DAILY
[place] 3-6-9 1,200 mg Capsule
1 cap PO DAILY
Jardiance 10 mg Tablet
10 mg PO DAILY
Rx Instructions:
on for upcoming producre colonoscopist
Magnesium Bisglycinate
200 mg PO BID
Discharge Orders:
Discharge Patient (As Directed); Ordered 08/20/24
Ordered By: Seb Martinez
Discharge Date and Time
Discharge Date/Time: 08/20/24 14:23
Print Language: SAMI
[2024-08-20 12:23] LABS: Glucose - Point of Care 172 mg/dl (70-99)
[2024-08-20] MEDS: KEFLEX 500 MG PO (12:39)
[2024-08-20 14:26] VITALS: BP 126/57
--- NOTE | 2024-08-20 22:23 | CON.ORTHO ---
Consultation
-
Date/Time Consultation Requested: 08/18/24 1909
Date/Time Consultation Performed: 08/19/24 0800
Requesting Provider: Malaika WEI
Performing Provider: LETI Cook, Dr. Lang Evans
Reason for Consultation: R knee pain, possible septic bursitis
Consultation - Orthopedics
History
74-year-old male admitted at secondary to presenting to the emergency department from the wound care center for evaluation and treatment of right lower extremity pain, erythema, edema and increased warmth which has been progressively worsening
over the last 2 weeks after patient fell out of a computer chair onto both knees. He had a small blister on his knee which is since subsided but still has a small opening. The erythema has started to track down into the right lower extremity
towards the ankle for past three days. No fevers or chills. Orthopedics was consulted for concern of possible septic bursitis. He reports some improvement since beginning antibiotics and rest. He denies any prodromal pain or hx of knee
pain/issues.
Allergies / Home Medications
Past Medical History: Reports Other
Additional Past Medical History:
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
Past Surgical History: Reports Other
Additional Past Surgical History:
[place] teeth removed, kyphoplasty, bladder surgery, cataract surgery
Social History
Tobacco: Former Smoker
Alcohol: Daily (3 glasses of wine)
Drug: None
Living: With Family
Family History
Family History: Not pertinent
Allergy/AdvReac Type Severity Reaction Status Date / Time
No Known Allergies Allergy Verified 08/18/24 14:02
�Medication �Instructions �Recorded
gabapentin 400 mg capsule 400 mg PO TID 01/12/21
roflumilast 500 mcg tablet 500 mcg PO Daily 01/12/21
(Daliresp)
spironolactone 25 mg tablet 25 mg PO Daily 01/12/21
zaleplon 10 mg capsule 10 mg PO HSPRN PRN sleep 01/12/21
Magnesium Bisglycinate 200 mg PO BID 08/18/24
amlodipine 5 mg tablet (Norvasc) 5 mg PO DAILY 08/18/24
ascorbic acid-ascorbate 15 ml PO DAILY 08/18/24
calcium-ascorbate sod 500 mg/15 mL
oral liquid (Vitamin C)
carvedilol 6.25 mg tablet (Coreg) 6.25 mg PO BID 08/18/24
cholecalciferol (vitamin D3) 125 125 mcg PO DAILY 08/18/24
mcg (5,000 unit) tablet (Vitamin
D3)
cyanocobalamin (vitamin B-12) 1,000 mcg PO MOWEFR 08/18/24
1,000 mcg tablet
duloxetine 60 mg capsule,delayed 60 mg PO DAILY 08/18/24
release (Cymbalta)
empagliflozin 10 mg tablet 10 mg PO DAILY 08/18/24
(Jardiance)
fish, borage, flaxseed oils-omega 1 cap PO DAILY 08/18/24
3,6,9 comb no.1 1,200 mg capsule
(Etlan 3-6-9)
furosemide 20 mg tablet (Lasix) 20 mg PO DAILY 08/18/24
levetiracetam 500 mg tablet 500 mg PO BID 08/18/24
(Keppra)
pantoprazole 40 mg tablet,delayed 40 mg PO DAILY 08/18/24
release (Protonix)
pravastatin 40 mg tablet 40 mg PO QPM 08/18/24
trazodone 50 mg tablet 50 mg PO HS 08/18/24
vitamin B complex 1 tab PO DAILY 08/18/24
zinc sulfate 25 mg zinc (110 mg) 15 mg PO DAILY 08/18/24
tablet
cephalexin 500 mg capsule 500 mg PO QID 5 days #20 caps 08/20/24
polyethylene glycol 3350 17 4 g PO DAILY #119 grams 08/20/24
gram/dose oral powder (Miralax)
tramadol 50 mg tablet 50 mg PO Q8H PRN moderate to 08/20/24
severe pain #14 tabs
Vital Signs / Lab Results
Temp Pulse Resp BP Pulse Ox
98.0 F 62 20 126/57 95
08/20/24 14:26 08/20/24 14:26 08/20/24 14:26 08/20/24 14:26 08/20/24 14:26
08/20/24 10:22
08/20/24 10:22
Physical Exam:
Focused exam of the RLE shows bogginess of the anterior soft tissue overlying the patellar with mild redness. Palpable fluid collection. No effusion. NVI L3-S1. ROM 0-120 degrees. Area of prior wound overlying skin of the patella
Imaging: plain films of the right knee show no acute osseous abnormalities; minimal chronic degenerative changes. Anterior soft tissue swelling.
Assessment / Plan
74 y/o male presenting to ED after traumatic onset of pain swelling of redness of the anterior knee consistent with prepatellar bursitis, possible infectious.
Discussed differential of inflammatory, hemorrhagic, or possible infectious. Given recent antibiotics we discussed that aspiration may have decreased sensitivity/specificity, however given there is a fluid collection, recommended attempted
aspiration as the appearance of the aspirate would help determine treatment plan, noting that saul purulence would more likely be recommended for operative debridement.
Limited nonvascular US exam at bedside showed mixed density hypoechoic prepatellar bursitiis without effusion, indicating likely hemorrhagic.
Using sterile technique an 18 gauge needle was placed into the prepatellar bursa using a direct approach; 1-2cc of thick coagulated blood was aspirated despite good needle visualization. Discussed with patient diagnostic for hemorrhagic bursitis
with possible components of cellulitis
A compression wrap was applied- insufficient volume for testing. Symptoms should slowly improve over time with compression and heat.
treatment of cellulitis per primary- ortho will follow peripherally at this time, no outpatient follow-up required.
== END 2024-08-20 14:23 | disposition home or self-care (01) | DRG 603 ==
LOC: 3 WEST ACU 18:53
PROVIDERS: Emergency Medicine; Registered Nurse; ADMITTING PHYSICIAN Student in an Organized Health Care Education/Training Program; ATTENDING PHYSICIAN Hospitalist; CONSULT PHYSICIAN Orthopaedic Surgery; EMERGENCY PHYSICIAN Emergency Medicine
PROC: 0M9N3ZX Drainage of Right Knee Bursa and Ligament, Percutaneous Approach, Diagnostic (ICD-10-PCS; 2024-08-18)
DX: L03.115 Cellulitis of right lower limb (principal); I50.32 Chronic diastolic (congestive) heart failure; M70.41 Prepatellar bursitis, right knee; S80.01XA Contusion of right knee, initial encounter; W07.XXXA Fall from chair, initial encounter; E78.00 Pure hypercholesterolemia, unspecified; J44.9 Chronic obstructive pulmonary disease, unspecified; R56.9 Unspecified convulsions; I11.0 Hypertensive heart disease with heart failure; Z87.891 Personal history of nicotine dependence
CPT/HCPCS: 73564; 80048; 80076; 82962; 83735; 84132; 85025; 85652; 86140; 86803; 87040; 97116; 97163; 99215; 99285

== ENCOUNTER → 2024-08-25 08:55 | Outpatient (REF) | payer MEDICARE, OTHER, SELFPAY | LOC: WOUND 08:55 | PROVIDERS: ATTENDING PHYSICIAN Surgery; FAMILY PHYSICIAN Family Medicine | DX: L97.322 Non-pressure chronic ulcer of left ankle with fat layer exposed (principal); I87.2 Venous insufficiency (chronic) (peripheral); I73.9 Peripheral vascular disease, unspecified; I50.9 Heart failure, unspecified; I50.32 Chronic diastolic (congestive) heart failure; J44.9 Chronic obstructive pulmonary disease, unspecified; G62.9 Polyneuropathy, unspecified; M00.9 Pyogenic arthritis, unspecified; S80.01XA Contusion of right knee, initial encounter; X58.XXXA Exposure to other specified factors, initial encounter | CPT/HCPCS: 11042 ==

== ENCOUNTER → 2024-09-01 13:52 | Outpatient (REF) | payer MEDICARE, OTHER, SELFPAY | LOC: WOUND 13:52 | PROVIDERS: ATTENDING PHYSICIAN Surgery | DX: I87.2 Venous insufficiency (chronic) (peripheral) (principal); I73.9 Peripheral vascular disease, unspecified; I50.9 Heart failure, unspecified; I50.32 Chronic diastolic (congestive) heart failure; J44.9 Chronic obstructive pulmonary disease, unspecified; S80.01XA Contusion of right knee, initial encounter; G62.9 Polyneuropathy, unspecified; M00.9 Pyogenic arthritis, unspecified; X58.XXXA Exposure to other specified factors, initial encounter | CPT/HCPCS: 97597 ==

== ENCOUNTER → 2024-09-15 09:58 | Outpatient (REF) | payer MEDICARE, OTHER, SELFPAY | LOC: WOUND 09:58 | PROVIDERS: ATTENDING PHYSICIAN Surgery; FAMILY PHYSICIAN Family Medicine | DX: L97.322 Non-pressure chronic ulcer of left ankle with fat layer exposed (principal); I87.2 Venous insufficiency (chronic) (peripheral); I73.9 Peripheral vascular disease, unspecified; I50.9 Heart failure, unspecified; I50.32 Chronic diastolic (congestive) heart failure; J44.9 Chronic obstructive pulmonary disease, unspecified; S80.01XA Contusion of right knee, initial encounter; G62.9 Polyneuropathy, unspecified; M00.9 Pyogenic arthritis, unspecified; X58.XXXA Exposure to other specified factors, initial encounter | CPT/HCPCS: 99213 ==

== ENCOUNTER → 2024-09-30 13:12 | Outpatient (REF) | payer MEDICARE, OTHER, SELFPAY | LOC: WOUND 13:12 | PROVIDERS: ATTENDING PHYSICIAN Surgery; FAMILY PHYSICIAN Family Medicine | DX: L97.322 Non-pressure chronic ulcer of left ankle with fat layer exposed (principal); I87.2 Venous insufficiency (chronic) (peripheral); I73.9 Peripheral vascular disease, unspecified; I50.9 Heart failure, unspecified; I50.32 Chronic diastolic (congestive) heart failure; J44.9 Chronic obstructive pulmonary disease, unspecified; S80.01XA Contusion of right knee, initial encounter; G62.9 Polyneuropathy, unspecified; M00.9 Pyogenic arthritis, unspecified; X58.XXXA Exposure to other specified factors, initial encounter | CPT/HCPCS: 99213 ==

== ENCOUNTER 2025-03-01 07:03 | Day surgery (SDC) | payer MEDICARE, OTHER, SELFPAY ==
[2025-03-01 08:13] VITALS: BMI 35.0
== END 2025-03-01 10:10 ==
LOC: CATH 07:03
PROVIDERS: ATTENDING PHYSICIAN Student in an Organized Health Care Education/Training Program; FAMILY PHYSICIAN Family Medicine; OTHER PHYSICIAN Internal Medicine Cardiovascular Disease
DX: I08.0 Rheumatic disorders of both mitral and aortic valves (principal); I51.3 Intracardiac thrombosis, not elsewhere classified; I48.91 Unspecified atrial fibrillation; I70.0 Atherosclerosis of aorta; I08.3 Combined rheumatic disorders of mitral, aortic and tricuspid valves
CPT/HCPCS: 93312; 93320; 93325

== ENCOUNTER 2025-03-31 09:29 | Day surgery (SDC) | payer MEDICARE, OTHER, SELFPAY | END 2025-03-31 11:28 | disposition home or self-care (01) | LOC: CATH 09:29 | PROVIDERS: ATTENDING PHYSICIAN Internal Medicine; FAMILY PHYSICIAN Family Medicine; OTHER PHYSICIAN Internal Medicine Cardiovascular Disease | DX: I08.3 Combined rheumatic disorders of mitral, aortic and tricuspid valves (principal); I48.19 Other persistent atrial fibrillation; Z79.01 Long term (current) use of anticoagulants; Z79.899 Other long term (current) drug therapy; Z79.84 Long term (current) use of oral hypoglycemic drugs; J44.9 Chronic obstructive pulmonary disease, unspecified; I50.32 Chronic diastolic (congestive) heart failure; I11.0 Hypertensive heart disease with heart failure | CPT/HCPCS: 93312; 93320; 93325 ==